=== PATIENT | female | born 1975 | race Two or more races ===

== ENCOUNTER 2023-03-10 19:21 | Emergency (ER) | payer OTHER ==
[~2023-03-10] VITALS: Ht 167.6 cm; Wt 68.0 kg
[2023-03-10] MEDS ORDERED: PROCHLORPERAZINE EDISYLATE 10 MG/2 ML VIAL ONE (20:02)
[2023-03-10] MEDS ORDERED: diphenhydrAMINE 50 MG/1 ML VIAL ONE (20:02)
[2023-03-10] MEDS ORDERED: KETOROLAC TROMETHAMINE 15 MG INJ ONE (20:02)
[2023-03-10] MEDS: IV NORMAL SALINE 1000 ML BAG IV ONE (20:10)
[2023-03-10] MEDS: PROCHLORPERAZINE EDISYLATE 10 MG/2 ML VIAL IV ONE (20:11)
[2023-03-10] MEDS: KETOROLAC TROMETHAMINE 15 MG INJ IVP ONE (20:12)
[2023-03-10] MEDS: diphenhydrAMINE 50 MG/1 ML VIAL IV ONE (20:13)
[2023-03-10 20:15] LABS: BASOPHILS % (AUTO) 0.3 % (0.0-2.0); EOSINOPHILS % (AUTO) 0.5 % (0.0-7.0); HEMATOCRIT 38.7 % (31.2-41.9); HEMOGLOBIN 13.2 g/dL (10.9-14.3); LYMPHOCYTES # (AUTO) 1.4 K/uL (0.8-4.8); LYMPHOCYTES % (AUTO) 19.7 % (20.5-51.5); MEAN CORPUSCULAR HEMOGLOBIN 31.4 uug (24.7-32.8); MEAN CORPUSCULAR HGB CONC 34 g/dL (32.3-35.6); MEAN CORPUSCULAR VOLUME 92.3 fL (75.5-95.3); MONOCYTES # (AUTO) 0.3 K/uL (0.1-1.30); MONOCYTES % (AUTO) 4.6 % (0.0-11.0); NEUTROPHILS # (AUTO) 5.3 K/uL (1.8-8.9); NEUTROPHILS % (AUTO) 74.9 % (38.5-71.5); PLATELET COUNT (AUTO) 401 K/uL (179-408); RED CELL DISTRIBUTION WIDTH 13.3 % (12.3-17.7)
[2023-03-10 20:18] LABS: DIFFERENTIAL COMMENT 1
[2023-03-10 20:32] LABS: CALCIUM 8.8 mg/dL (8.5-10.1); CARBON DIOXIDE 29 mmol/L (21-32); CHLORIDE 101 mmol/L (98-107); CREATININE 0.5 mg/dL (0.6-1.3); GLUCOSE 144 mg/dL (74-106); POTASSIUM 3.6 mmol/L (3.5-5.1); SODIUM SERUM 138 mmol/L (136-145); UREA NITROGEN, BLOOD 10 mg/dL (7-18)
[2023-03-10 22:04] VITALS: BP 120/79; TEMP 97.9; O2SAT 98
== END 2023-03-10 21:50 | disposition home or self-care (01) ==
LOC: ER 19:23
DX: R42 Dizziness and giddiness (principal); R53.1 Weakness; E86.0 Dehydration; G43.909 Migraine, unspecified, not intractable, without status migrainosus; R07.89 Other chest pain
CPT/HCPCS: 99285; 96374; 71045; 96375; 80048; 85025; 85730; 84484; 36415; 93005; J1200; J1885; J0780; J7040; A4663